=== PATIENT | male | born 1930 | race Caucasian/White ===

== ENCOUNTER 2018-03-24 19:53 | Inpatient (IN) ==
[2018-03-24] MEDS ORDERED: SODIUM CHLORIDE 0.9% 1,000 ML IV STA ×2 (20:15→23:07)
[2018-03-24] MEDS ORDERED: ACETAMINOPHEN 500 MG TABLET PO STA (20:17)
[2018-03-24 20:38] LABS: Basophils % 0.1 % (0.0-0.8); Eosinophils # 0.1 10*3/uL (0.0-0.87); Eosinophils % 0.4 % (0.00-10.9); Hematocrit 31.5 VOL% (42.0-52.0); Hemoglobin 10.3 GM/DL (14.0-18.0); Immature Granulocytes % 0.5 %; Immature Granulocytes Absolute 0.07 #; Lymphocytes # 0.8 10*3/uL (1.4-4.0); Lymphocytes % 5.9 % (21.2-54.2); Mean Corpuscular HGB Conc 32.7 GM/DL (32-36); Mean Corpuscular Hemoglobin 30 PG (27-34); Mean Corpuscular Volume 91.3 FL (87-102); Mean Platelet Volume 10.3 FL (9.6-12.0); Monocytes % 7.1 % (1.7-12.7); Neutrophils # 11.7 10*3/uL (1.4-7.4); Platelet Count 132 T/CUMM (130-400); Red Blood Count 3.45 MC/CUMM (3.8-5.5); Red Cell Distribution Width 13.2 % (9.3-17.3); White Blood Count 13.6 T/CUMM (4-12)
[2018-03-24 20:47] LABS: INR 0.9
[2018-03-24 20:59] LABS: ABG Base Excess 3.7 MMOL/L (-2.5-2.5); ABG HCO3 26.9 MMOL/L (20-26); ABG Oxygen Saturation 49.1 % (95-100); ABG PCO2 45.6 MM HG (35-48); ABG PH 7.411 (7.35-7.45); ABG TCO2 26.5 MMOL/L (23-27); Allen Test Positive
[2018-03-24 21:00] LABS: Albumin 2.8 G/DL (3.4-5.0); Bilirubin,Total 0.5 MG/DL (0.2-1.0); Calcium 8.2 MG/DL (8.5-10.1); Osmolality,Calculated 262.4 MOS/KG (273-304); Total Protein 5.5 G/DL (6.4-8.3)
[2018-03-24 21:02] LABS: ABG PO2 26.3 MM HG (80-95)
[2018-03-24 21:32] LABS: Apearance,Urine CLEAR (Clear); Bilirubin,Urine Negative (Negative); Blood, Urine Large mg/dL (Negative); Glucose,Urine (UA) Negative (Negative); Ketones,Urine Negative (Negative); Mucus,Urine Occasional /LPF (Occasional); Nitrite,Urine Negative (Negative); Protein,Urine Negative; RBC,Urine 51 /HPF (0-4); Squamous Epithelial Cell,Urine Occasional /HPF (0-10); Urine Color Yellow (Yellow); Urine Specific Gravity 1.008 (1.001-1.035); Urine Urobilinogen < 2.0 EU/DL (0.2-1.0); WBC,Urine 1 /HPF (0-6)
[2018-03-24 21:41] LABS: ABG Base Excess 3.1 MMOL/L (-2.5-2.5); ABG HCO3 27.2 MMOL/L (20-26); ABG Oxygen Saturation 96.1 % (95-100); ABG PCO2 40.8 MM HG (35-48); ABG PH 7.437 (7.35-7.45); ABG PO2 74.1 MM HG (80-95)
[2018-03-24] MEDS ORDERED: LEVOFLOXACIN INJ 500 MG in PREMIX 1 EACH IV STA (21:44)
[2018-03-24] MEDS ORDERED: DEXTROSE 50% 25 GM/50 ML VIAL IV STA (21:54)
[2018-03-24] MEDS ORDERED: INSULIN REGULAR 100 UNIT/ML IV STA (21:54)
[2018-03-24] MEDS ORDERED: DEXTROSE 50% 25 GM/50 ML SYRINGE IV ONE (22:24)
[2018-03-24] MEDS ORDERED: BISACODYL 5 MG TABLET PO PRN (23:05)
[2018-03-24] MEDS ORDERED: diphenhydrAMINE CAP 25 MG CAPSULE PO PRN (23:05)
[2018-03-24] MEDS ORDERED: NICOTINE 21 MG/24 HR PATCH TRANSDERM PRN (23:05)
[2018-03-24] MEDS ORDERED: AZITHROMYCIN INJ 500 MG in SODIUM CHLORIDE 0.9% 250 ML IV SCH (23:30)
[2018-03-24] MEDS ORDERED: SODIUM POLYSTYRENE SULFATE 15 GM/60 ML BOTTLE PO SCH (23:30)
[2018-03-25] MEDS ORDERED: VANCOMYCIN INJ 1,500 MG in SODIUM CHLORIDE 0.9% 500 ML IV SCH
[2018-03-25] MEDS: SODIUM CHLORIDE 0.9% 1,000 ML IV SCH (00:54)
[2018-03-25] MEDS: ALBUTEROL/IPRATROPIUM 3 ML NEB RESP TX SCH ×5 (03:14→19:40)
[2018-03-25] MEDS: PIPERACILLIN/TAZOBACTAM 3,375 MG in SODIUM CHLORIDE 0.9% 100 ML IV SCH ×3 (05:16→18:49)
[2018-03-25 05:54] LABS: Basophils % 0.2 % (0.0-0.8); Eosinophils # 0.1 10*3/uL (0.0-0.87); Hematocrit 28.7 VOL% (42.0-52.0); Hemoglobin 9.2 GM/DL (14.0-18.0); Immature Granulocytes % 0.6 %; Immature Granulocytes Absolute 0.05 #; Lymphocytes # 0.8 10*3/uL (1.4-4.0); Lymphocytes % 8.4 % (21.2-54.2); Mean Corpuscular HGB Conc 32.1 GM/DL (32-36); Mean Corpuscular Hemoglobin 30 PG (27-34); Mean Corpuscular Volume 92.3 FL (87-102); Mean Platelet Volume 10.2 FL (9.6-12.0); Monocytes # 0.9 10*3/uL (0.11-0.8); Monocytes % 9.5 % (1.7-12.7); Neutrophils # 7.3 10*3/uL (1.4-7.4); Neutrophils % 80.3 % (38.7-73.9); Platelet Count 106 T/CUMM (130-400); Red Blood Count 3.11 MC/CUMM (3.8-5.5); Red Cell Distribution Width 13.3 % (9.3-17.3); White Blood Count 9.1 T/CUMM (4-12)
[2018-03-25 06:14] LABS: Albumin 2.4 G/DL (3.4-5.0); Bilirubin,Total 0.8 MG/DL (0.2-1.0); Calcium 7.6 MG/DL (8.5-10.1); Osmolality,Calculated 263.2 MOS/KG (273-304); Potassium 5.5 MMOL/L (3.5-5.1)
[2018-03-25] MEDS ORDERED: SODIUM POLYSTYRENE SULFATE 15 GM/60 ML BOTTLE RECTAL ONE (06:29)
[2018-03-25] MEDS: PANTOPRAZOLE 40 MG TABLET PO SCH (09:33)
[2018-03-25] MEDS: LEVOFLOXACIN INJ 500 MG in PREMIX 1 EACH IV SCH ×3 (11:00→18:42)
[2018-03-25] MEDS ORDERED: ALBUTEROL 2.5 MG/3 ML NEB RESP TX PRN (11:55)
[2018-03-25 12:05] LABS: Basophils % 0.2 % (0.0-0.8); Eosinophils # 0.1 10*3/uL (0.0-0.87); Eosinophils % 0.8 % (0.00-10.9); Hemoglobin 8.8 GM/DL (14.0-18.0); Immature Granulocytes % 0.5 %; Immature Granulocytes Absolute 0.04 #; Lymphocytes # 0.7 10*3/uL (1.4-4.0); Lymphocytes % 8.6 % (21.2-54.2); Mean Corpuscular HGB Conc 32.6 GM/DL (32-36); Mean Corpuscular Hemoglobin 30 PG (27-34); Mean Corpuscular Volume 92.8 FL (87-102); Mean Platelet Volume 10.7 FL (9.6-12.0); Monocytes # 0.7 10*3/uL (0.11-0.8); Monocytes % 8.9 % (1.7-12.7); Neutrophils # 6.7 10*3/uL (1.4-7.4); Platelet Count 100 T/CUMM (130-400); Red Blood Count 2.91 MC/CUMM (3.8-5.5); Red Cell Distribution Width 13.3 % (9.3-17.3); White Blood Count 8.3 T/CUMM (4-12)
[2018-03-25] MEDS ORDERED: MAGNESIUM HYDROXIDE SUSP 30 ML UDCUP PO ONE (16:24)
[2018-03-25] MEDS: THEOPHYLLINE ER (24 HR) 300 MG CAPSULE PO SCH (17:05)
[2018-03-25] MEDS: DUTASTERIDE 0.5 MG CAPSULE PO SCH (17:06)
[2018-03-25] MEDS: ESCITALOPRAM 10 MG TABLET PO SCH (17:06)
[2018-03-25] MEDS: ACETAMINOPHEN 325 MG TABLET PO PRN (17:29)
[2018-03-25 18:39] LABS: Calcium 7.3 MG/DL (8.5-10.1); Osmolality,Calculated 266.9 MOS/KG (273-304); Potassium 4.8 MMOL/L (3.5-5.1)
[2018-03-25] MEDS: LUBIPROSTONE 8 MCG CAPSULE PO SCH (21:03)
[2018-03-25] MEDS: TAMSULOSIN 0.4 MG CAPSULE PO SCH (21:03)
[2018-03-26] MEDS: ALBUTEROL/IPRATROPIUM 3 ML NEB RESP TX SCH ×4 (00:23→19:17)
[2018-03-26] MEDS: PIPERACILLIN/TAZOBACTAM 3,375 MG in SODIUM CHLORIDE 0.9% 100 ML IV SCH ×3 (01:59→20:06)
[2018-03-26 05:50] LABS: Basophils % 0.2 % (0.0-0.8); Eosinophils # 0.1 10*3/uL (0.0-0.87); Eosinophils % 1.1 % (0.00-10.9); Hemoglobin 8.8 GM/DL (14.0-18.0); Immature Granulocytes % 0.6 %; Immature Granulocytes Absolute 0.03 #; Lymphocytes # 0.6 10*3/uL (1.4-4.0); Mean Corpuscular HGB Conc 32.6 GM/DL (32-36); Mean Corpuscular Hemoglobin 30 PG (27-34); Mean Corpuscular Volume 91.5 FL (87-102); Mean Platelet Volume 10.7 FL (9.6-12.0); Monocytes # 0.6 10*3/uL (0.11-0.8); Monocytes % 11.8 % (1.7-12.7); Neutrophils # 4.1 10*3/uL (1.4-7.4); Neutrophils % 75.3 % (38.7-73.9); Red Blood Count 2.95 MC/CUMM (3.8-5.5); Red Cell Distribution Width 13.2 % (9.3-17.3)
[2018-03-26 06:00] LABS: White Blood Count 5.4 T/CUMM (4-12)
[2018-03-26 06:01] LABS: Platelet Count 99 T/CUMM (130-400)
[2018-03-26 06:06] LABS: Calcium 7.6 MG/DL (8.5-10.1); Osmolality,Calculated 273.1 MOS/KG (273-304); Potassium 4.3 MMOL/L (3.5-5.1)
[2018-03-26 06:09] LABS: Platelet Estimate Decreased
[2018-03-26 06:10] LABS: Hypochromasia Slight
[2018-03-26 09:03] LABS: Bacteria,Urine Occasional /HPF (Few); Bilirubin,Urine Negative (Negative); Blood, Urine Large mg/dL (Negative); Glucose,Urine (UA) Negative (Negative); Ketones,Urine Negative (Negative); Nitrite,Urine Negative (Negative); Protein,Urine 100 MG/DL; RBC,Urine 4111 /HPF (0-4); Urine Color Red (Yellow); Urine Specific Gravity 1.009 (1.001-1.035); Urine Urobilinogen < 2.0 EU/DL (0.2-1.0)
[2018-03-26 09:04] LABS: Apearance,Urine Slightly Cloudy (Clear)
[2018-03-26] MEDS: TAMSULOSIN 0.4 MG CAPSULE PO SCH ×2 (09:29→20:05)
[2018-03-26] MEDS: DUTASTERIDE 0.5 MG CAPSULE PO SCH (09:29)
[2018-03-26] MEDS: LUBIPROSTONE 8 MCG CAPSULE PO SCH ×2 (09:29→20:05)
[2018-03-26] MEDS: ESCITALOPRAM 10 MG TABLET PO SCH (09:29)
[2018-03-26] MEDS: THEOPHYLLINE ER (24 HR) 300 MG CAPSULE PO SCH (09:30)
[2018-03-26] MEDS: POLYETHYLENE GLYCOL POWDER 17 GM PACK PO SCH (09:30)
[2018-03-26] MEDS: PANTOPRAZOLE 40 MG TABLET PO SCH (09:30)
[2018-03-26] MEDS: SODIUM CHLORIDE 0.9% 1,000 ML IV SCH ×4 (09:36→23:26)
[2018-03-26] MEDS ORDERED: VANCOMYCIN INJ 1,000 MG in SODIUM CHLORIDE 0.9% 250 ML IV ONE (11:00)
[2018-03-26] MEDS: LEVOFLOXACIN INJ 500 MG in PREMIX 1 EACH IV SCH (18:10)
[2018-03-26] MEDS: MORPHINE 4 MG/1 ML VIAL IV PRN (23:27)
[2018-03-26] MEDS: ONDANSETRON 4 MG/2 ML VIAL IV PRN (23:27)
[2018-03-26] MEDS: VANCOMYCIN INJ 1,500 MG in SODIUM CHLORIDE 0.9% 500 ML IV SCH (23:28)
[2018-03-27] MEDS: ALBUTEROL/IPRATROPIUM 3 ML NEB RESP TX SCH ×4 (00:53→19:07)
[2018-03-27] MEDS: PIPERACILLIN/TAZOBACTAM 3,375 MG in SODIUM CHLORIDE 0.9% 100 ML IV SCH ×3 (03:55→20:24)
[2018-03-27] MEDS: MORPHINE 4 MG/1 ML VIAL IV PRN (06:18)
[2018-03-27] MEDS: TAMSULOSIN 0.4 MG CAPSULE PO SCH ×2 (09:13→20:25)
[2018-03-27] MEDS: LUBIPROSTONE 8 MCG CAPSULE PO SCH ×2 (09:13→20:25)
[2018-03-27] MEDS: DUTASTERIDE 0.5 MG CAPSULE PO SCH (09:13)
[2018-03-27] MEDS: ESCITALOPRAM 10 MG TABLET PO SCH (09:13)
[2018-03-27] MEDS: PANTOPRAZOLE 40 MG TABLET PO SCH (09:13)
[2018-03-27] MEDS: THEOPHYLLINE ER (24 HR) 300 MG CAPSULE PO SCH (09:13)
[2018-03-27] MEDS: POLYETHYLENE GLYCOL POWDER 17 GM PACK PO SCH (09:14)
[2018-03-27] MEDS: ACETAMINOPHEN 325 MG TABLET PO PRN ×2 (10:21→13:51)
[2018-03-27] MEDS: VANCOMYCIN INJ 1,500 MG in SODIUM CHLORIDE 0.9% 500 ML IV SCH (13:54)
[2018-03-28] MEDS: ALBUTEROL/IPRATROPIUM 3 ML NEB RESP TX SCH ×4 (00:07→19:10)
[2018-03-28] MEDS: PIPERACILLIN/TAZOBACTAM 3,375 MG in SODIUM CHLORIDE 0.9% 100 ML IV SCH ×3 (05:15→20:16)
[2018-03-28] MEDS: SODIUM CHLORIDE 0.9% 1,000 ML IV SCH ×3 (05:16→09:51)
[2018-03-28] MEDS: MORPHINE 4 MG/1 ML VIAL IV PRN ×3 (05:23→20:17)
[2018-03-28 06:09] LABS: Basophils % 0.4 % (0.0-0.8); Eosinophils # 0.1 10*3/uL (0.0-0.87); Eosinophils % 1.5 % (0.00-10.9); Hematocrit 28.4 VOL% (42.0-52.0); Hemoglobin 9.3 GM/DL (14.0-18.0); Immature Granulocytes % 0.4 %; Immature Granulocytes Absolute 0.02 #; Lymphocytes # 1.1 10*3/uL (1.4-4.0); Lymphocytes % 21.8 % (21.2-54.2); Mean Corpuscular HGB Conc 32.7 GM/DL (32-36); Mean Corpuscular Hemoglobin 30 PG (27-34); Mean Corpuscular Volume 90.4 FL (87-102); Mean Platelet Volume 10.7 FL (9.6-12.0); Monocytes # 0.6 10*3/uL (0.11-0.8); Monocytes % 10.7 % (1.7-12.7); Neutrophils # 3.4 10*3/uL (1.4-7.4); Neutrophils % 65.2 % (38.7-73.9); Red Blood Count 3.14 MC/CUMM (3.8-5.5); White Blood Count 5.2 T/CUMM (4-12)
[2018-03-28 06:11] LABS: Platelet Count 91 T/CUMM (130-400)
[2018-03-28 06:26] LABS: Calcium 8.1 MG/DL (8.5-10.1); Osmolality,Calculated 270.8 MOS/KG (273-304); Potassium 3.7 MMOL/L (3.5-5.1)
[2018-03-28 06:27] LABS: Hypochromasia Slight; Microcytosis 1+; Ovalocytes Slight; Platelet Estimate Decreased
[2018-03-28] MEDS: ESCITALOPRAM 10 MG TABLET PO SCH (09:38)
[2018-03-28] MEDS: TAMSULOSIN 0.4 MG CAPSULE PO SCH ×2 (09:38→20:18)
[2018-03-28] MEDS: THEOPHYLLINE ER (24 HR) 300 MG CAPSULE PO SCH (09:38)
[2018-03-28] MEDS: LUBIPROSTONE 8 MCG CAPSULE PO SCH ×2 (09:38→20:17)
[2018-03-28] MEDS: DUTASTERIDE 0.5 MG CAPSULE PO SCH (09:39)
[2018-03-28] MEDS: PANTOPRAZOLE 40 MG TABLET PO SCH (09:39)
[2018-03-28] MEDS: POLYETHYLENE GLYCOL POWDER 17 GM PACK PO SCH (09:39)
[2018-03-28] MEDS ORDERED: fentaNYL 12 MCG/HR PATCH TRANSDERM SCH (17:30)
[2018-03-28] MEDS: ONDANSETRON 4 MG/2 ML VIAL IV PRN (20:17)
[2018-03-28] MEDS: GABAPENTIN 300 MG CAPSULE PO SCH (20:18)
[2018-03-29] MEDS: ALBUTEROL/IPRATROPIUM 3 ML NEB RESP TX SCH ×2 (00:30→07:10)
[2018-03-29] MEDS: SODIUM CHLORIDE 0.9% 1,000 ML IV SCH (05:06)
[2018-03-29] MEDS: PIPERACILLIN/TAZOBACTAM 3,375 MG in SODIUM CHLORIDE 0.9% 100 ML IV SCH (05:06)
[2018-03-29 07:00] LABS: Basophils % 0.4 % (0.0-0.8); Eosinophils # 0.1 10*3/uL (0.0-0.87); Eosinophils % 2.2 % (0.00-10.9); Hematocrit 28.9 VOL% (42.0-52.0); Hemoglobin 9.4 GM/DL (14.0-18.0); Immature Granulocytes % 0.4 %; Immature Granulocytes Absolute 0.02 #; Lymphocytes # 0.5 10*3/uL (1.4-4.0); Lymphocytes % 9.2 % (21.2-54.2); Mean Corpuscular HGB Conc 32.5 GM/DL (32-36); Mean Corpuscular Hemoglobin 30 PG (27-34); Mean Corpuscular Volume 91.7 FL (87-102); Mean Platelet Volume 10.5 FL (9.6-12.0); Monocytes # 0.5 10*3/uL (0.11-0.8); Monocytes % 8.6 % (1.7-12.7); Neutrophils # 4.3 10*3/uL (1.4-7.4); Neutrophils % 79.2 % (38.7-73.9); Platelet Count 102 T/CUMM (130-400); Red Blood Count 3.15 MC/CUMM (3.8-5.5); Red Cell Distribution Width 12.9 % (9.3-17.3); White Blood Count 5.5 T/CUMM (4-12)
[2018-03-29 08:04] LABS: Calcium 8.1 MG/DL (8.5-10.1); Osmolality,Calculated 272.7 MOS/KG (273-304); Potassium 3.9 MMOL/L (3.5-5.1); Thyroid Stimulating Hormone 0.045 uIU/ml (0.358-3.74)
[2018-03-29] MEDS: TAMSULOSIN 0.4 MG CAPSULE PO SCH (08:44)
[2018-03-29] MEDS: LUBIPROSTONE 8 MCG CAPSULE PO SCH (08:44)
[2018-03-29] MEDS: DUTASTERIDE 0.5 MG CAPSULE PO SCH (08:44)
[2018-03-29] MEDS: ESCITALOPRAM 10 MG TABLET PO SCH (08:44)
[2018-03-29] MEDS: POLYETHYLENE GLYCOL POWDER 17 GM PACK PO SCH (08:44)
[2018-03-29] MEDS: THEOPHYLLINE ER (24 HR) 300 MG CAPSULE PO SCH (08:45)
[2018-03-29] MEDS: PANTOPRAZOLE 40 MG TABLET PO SCH (08:45)
[2018-03-29] MEDS: GABAPENTIN 300 MG CAPSULE PO SCH (08:45)
[2018-03-29] MEDS ORDERED: CHLORTHALIDONE 25 MG TABLET PO SCH (09:00)
[2018-03-29 10:40] VITALS: BP 165/73
== END 2018-03-29 12:15 | DRG 194 ==
LOC: EDBD → EDUNIT# → N.ED 19:53 → N.EDINP 23:05 → N.5E 23:36
PROVIDERS: ADMIT Internal Medicine; ATTEND Internal Medicine

== ENCOUNTER 2018-06-07 12:54 | Inpatient (IN) ==
[2018-06-07 14:07] LABS: Basophils % 0.7 % (0.0-0.8); Eosinophils # 0.4 10*3/uL (0.0-0.87); Hematocrit 30.7 VOL% (42.0-52.0); Hemoglobin 9.6 GM/DL (14.0-18.0); Immature Granulocytes % 0.2 %; Immature Granulocytes Absolute 0.01 #; Lymphocytes # 1.1 10*3/uL (1.4-4.0); Lymphocytes % 18.4 % (21.2-54.2); Mean Corpuscular HGB Conc 31.3 GM/DL (32-36); Mean Corpuscular Hemoglobin 28 PG (27-34); Mean Corpuscular Volume 90.6 FL (87-102); Mean Platelet Volume 9.4 FL (9.6-12.0); Monocytes # 0.6 10*3/uL (0.11-0.8); Monocytes % 10.1 % (1.7-12.7); Neutrophils # 3.8 10*3/uL (1.4-7.4); Neutrophils % 64.6 % (38.7-73.9); Platelet Count 201 T/CUMM (130-400); Red Blood Count 3.39 MC/CUMM (3.8-5.5); White Blood Count 5.8 T/CUMM (4-12)
[2018-06-07 14:29] LABS: Alanine Aminotransferase 17 U/L (16-61); Alkaline Phosphatase 77 U/L (45-117); Aspartate Amino Transferase 12 U/L (0-37); Bilirubin,Total < 0.39 MG/DL (0.2-1.0); Blood Urea Nitrogen 31 MG/DL (7-18); Calcium 9.3 MG/DL (8.5-10.1); Glucose 111 MG/DL (74-106); Osmolality,Calculated 284.5 MOS/KG (273-304); Potassium 5.5 MMOL/L (3.5-5.1); Sodium 139 MMOL/L (136-145); Total Protein 6.4 G/DL (6.4-8.3)
[2018-06-07 14:57] LABS: Apearance,Urine CLOUDY (Clear); Bilirubin,Urine Negative (Negative); Blood, Urine Small mg/dL (Negative); Glucose,Urine (UA) Negative (Negative); Ketones,Urine Negative (Negative); Nitrite,Urine Positive (Negative); Protein,Urine 30 MG/DL; RBC,Urine 15 /HPF (0-4); Urine Color Dark yellow (Yellow); Urine Specific Gravity 1.006 (1.001-1.035); WBC,Urine 948 /HPF (0-6)
[2018-06-07] MEDS ORDERED: GLUCAGON 1 MG VIAL IM PRN (15:28)
[2018-06-07] MEDS ORDERED: DEXTROSE 50% 25 GM/50 ML VIAL IV PRN (15:28)
[2018-06-07] MEDS ORDERED: ACETAMINOPHEN 325 MG TABLET PO PRN (15:28)
[2018-06-07] MEDS ORDERED: ONDANSETRON 4 MG/2 ML VIAL IV PRN (15:28)
[2018-06-07] MEDS ORDERED: cefTRIAXone 1,000 MG in SYRINGE 1 EACH IV STA (15:31)
[2018-06-07] MEDS ORDERED: AMPICILLIN INJ 2,000 MG in SODIUM CHLORIDE 0.9% 100 ML IV STA (15:34)
[2018-06-07] MEDS ORDERED: cefTRIAXone 1,000 MG VIAL ONE (15:40)
[2018-06-07] MEDS ORDERED: SODIUM CHLORIDE 0.9% 0 ML IV ONE (15:40)
[2018-06-07] MEDS ORDERED: SODIUM CHLORIDE 0.9% 100 ML IV ONE (15:44)
[2018-06-07] MEDS: SODIUM CHLORIDE 0.9% 1,000 ML IV SCH (15:50)
[2018-06-07] MEDS ORDERED: LINEZOLID INJ 600 MG in PREMIX 1 EACH IV SCH (16:00)
[2018-06-07] MEDS ORDERED: cefTRIAXone 1,000 MG in SODIUM CHLORIDE 0.9% 100 ML IV SCH (16:00)
[2018-06-07] MEDS: INSULIN LISPRO 100 UNIT/ML SUBCUT SCH ×2 (17:30→23:23)
[2018-06-07] MEDS: ENOXAPARIN 30 MG/0.3 ML SYRINGE SUBCUT SCH (20:46)
[2018-06-07] MEDS: AMPICILLIN INJ 2,000 MG in SODIUM CHLORIDE 0.9% 100 ML IV SCH (23:33)
[2018-06-08] MEDS: AMPICILLIN INJ 2,000 MG in SODIUM CHLORIDE 0.9% 100 ML IV SCH ×6 (02:39→20:50)
[2018-06-08] MEDS: SODIUM CHLORIDE 0.9% 1,000 ML IV SCH (02:43)
[2018-06-08 05:14] LABS: Basophils % 0.5 % (0.0-0.8); Eosinophils # 0.4 10*3/uL (0.0-0.87); Eosinophils % 6.7 % (0.00-10.9); Hematocrit 30.7 VOL% (42.0-52.0); Hemoglobin 9.5 GM/DL (14.0-18.0); Immature Granulocytes % 0.3 %; Immature Granulocytes Absolute 0.02 #; Lymphocytes # 1.2 10*3/uL (1.4-4.0); Lymphocytes % 19.7 % (21.2-54.2); Mean Corpuscular HGB Conc 30.9 GM/DL (32-36); Mean Corpuscular Hemoglobin 28 PG (27-34); Mean Corpuscular Volume 91.1 FL (87-102); Mean Platelet Volume 9.4 FL (9.6-12.0); Monocytes # 0.7 10*3/uL (0.11-0.8); Monocytes % 11.3 % (1.7-12.7); Neutrophils # 3.9 10*3/uL (1.4-7.4); Neutrophils % 61.5 % (38.7-73.9); Platelet Count 186 T/CUMM (130-400); Red Blood Count 3.37 MC/CUMM (3.8-5.5); Red Cell Distribution Width 13.8 % (9.3-17.3); White Blood Count 6.3 T/CUMM (4-12)
[2018-06-08 05:30] LABS: Calcium 8.6 MG/DL (8.5-10.1); Osmolality,Calculated 283.3 MOS/KG (273-304); Potassium 4.6 MMOL/L (3.5-5.1)
[2018-06-08] MEDS: INSULIN LISPRO 100 UNIT/ML SUBCUT SCH ×4 (08:17→22:05)
[2018-06-08] MEDS: PANTOPRAZOLE 40 MG TABLET PO SCH (08:25)
[2018-06-08] MEDS ORDERED: TEMAZEPAM 7.5 MG CAPSULE PO PRN (08:57)
[2018-06-08] MEDS: TAMSULOSIN 0.4 MG CAPSULE PO SCH ×2 (10:14→20:49)
[2018-06-08] MEDS: ENOXAPARIN 30 MG/0.3 ML SYRINGE SUBCUT SCH (20:49)
[2018-06-08] MEDS: DUTASTERIDE 0.5 MG CAPSULE PO SCH (20:49)
[2018-06-09] MEDS: AMPICILLIN INJ 2,000 MG in SODIUM CHLORIDE 0.9% 100 ML IV SCH ×3 (01:24→09:10)
[2018-06-09] MEDS: SODIUM CHLORIDE 0.9% 1,000 ML IV SCH ×2 (03:39→09:10)
[2018-06-09 06:19] LABS: Basophils % 0.6 % (0.0-0.8); Eosinophils # 0.3 10*3/uL (0.0-0.87); Eosinophils % 4.2 % (0.00-10.9); Hematocrit 34.6 VOL% (42.0-52.0); Hemoglobin 11.1 GM/DL (14.0-18.0); Immature Granulocytes % 0.6 %; Immature Granulocytes Absolute 0.04 #; Lymphocytes # 1.2 10*3/uL (1.4-4.0); Lymphocytes % 18.3 % (21.2-54.2); Mean Corpuscular HGB Conc 32.1 GM/DL (32-36); Mean Corpuscular Hemoglobin 28 PG (27-34); Mean Corpuscular Volume 88.5 FL (87-102); Mean Platelet Volume 9.5 FL (9.6-12.0); Monocytes # 0.7 10*3/uL (0.11-0.8); Monocytes % 10.8 % (1.7-12.7); Neutrophils # 4.4 10*3/uL (1.4-7.4); Neutrophils % 65.5 % (38.7-73.9); Platelet Count 179 T/CUMM (130-400); Red Blood Count 3.91 MC/CUMM (3.8-5.5); Red Cell Distribution Width 13.6 % (9.3-17.3); White Blood Count 6.7 T/CUMM (4-12)
[2018-06-09 06:55] LABS: Calcium 8.8 MG/DL (8.5-10.1); Free T4 (Free Thyroxine) 1.6 NG/DL (0.76-1.46); Osmolality,Calculated 281.3 MOS/KG (273-304)
[2018-06-09] MEDS: INSULIN LISPRO 100 UNIT/ML SUBCUT SCH ×4 (08:14→20:31)
[2018-06-09] MEDS: TAMSULOSIN 0.4 MG CAPSULE PO SCH ×3 (09:09→20:49)
[2018-06-09] MEDS: PANTOPRAZOLE 40 MG TABLET PO SCH (09:10)
[2018-06-09] MEDS ORDERED: guaiFENesin/DM ER 600-30 MG TABLET PO PRN (10:03)
[2018-06-09] MEDS ORDERED: ALBUTEROL 2.5 MG/3 ML NEB RESP TX PRN (10:03)
[2018-06-09] MEDS ORDERED: CYANOCOBALAMIN 1000 MCG/1 ML VIAL IM ONE (12:33)
[2018-06-09] MEDS: GABAPENTIN 300 MG CAPSULE PO SCH ×2 (12:57→20:14)
[2018-06-09] MEDS ORDERED: AMPICILLIN 500 MG CAPSULE PO SCH (13:00)
[2018-06-09 13:15] LABS: Apearance,Urine CLEAR (Clear); Bacteria,Urine Occasional /HPF (Few); Bilirubin,Urine Negative (Negative); Blood, Urine Small mg/dL (Negative); Glucose,Urine (UA) Negative (Negative); Ketones,Urine 5 mg/dL (Negative); Mucus,Urine Occasional /LPF (Occasional); Nitrite,Urine Negative (Negative); Protein,Urine 30 MG/DL; RBC,Urine 4 /HPF (0-4); Squamous Epithelial Cell,Urine Occasional /HPF (0-10); Urine Color Yellow (Yellow); Urine Specific Gravity 1.011 (1.001-1.035); Urine Urobilinogen < 2.0 EU/DL (0.2-1.0); WBC,Urine 24 /HPF (0-6)
[2018-06-09] MEDS: ALBUTEROL/IPRATROPIUM 3 ML NEB RESP TX SCH ×2 (14:51→18:49)
[2018-06-09] MEDS: AMOXICILLIN 500 MG CAPSULE PO SCH ×2 (17:35→20:14)
[2018-06-09] MEDS: LUBIPROSTONE 8 MCG CAPSULE PO SCH (20:13)
[2018-06-09] MEDS: MELATONIN 3 MG TABLET PO SCH (20:13)
[2018-06-09] MEDS: MONTELUKAST 10 MG TABLET PO SCH (20:13)
[2018-06-09] MEDS: DUTASTERIDE 0.5 MG CAPSULE PO SCH (20:14)
[2018-06-09] MEDS: CILOSTAZOL 100 MG TABLET PO SCH (20:14)
[2018-06-09] MEDS: ENOXAPARIN 40 MG/0.4 ML SYRINGE SUBCUT SCH (20:16)
[2018-06-10] MEDS: ALBUTEROL/IPRATROPIUM 3 ML NEB RESP TX SCH ×4 (00:37→20:07)
[2018-06-10 05:32] LABS: Calcium 8.1 MG/DL (8.5-10.1); Osmolality,Calculated 278.7 MOS/KG (273-304); Potassium 3.8 MMOL/L (3.5-5.1)
[2018-06-10] MEDS: LEVOTHYROXINE 150 MCG TABLET PO SCH (05:39)
[2018-06-10] MEDS: BISACODYL 5 MG TABLET PO PRN (05:39)
[2018-06-10] MEDS ORDERED: Albuterol Sulfate [Ventolin Hfa] 2 PUFF INH SCH (06:00)
[2018-06-10] MEDS: INSULIN LISPRO 100 UNIT/ML SUBCUT SCH ×4 (08:12→21:11)
[2018-06-10] MEDS: GABAPENTIN 300 MG CAPSULE PO SCH ×3 (08:49→21:35)
[2018-06-10] MEDS: POLYETHYLENE GLYCOL POWDER 17 GM PACK PO SCH (08:49)
[2018-06-10] MEDS: CILOSTAZOL 100 MG TABLET PO SCH ×2 (08:50→21:35)
[2018-06-10] MEDS: ALLOPURINOL 100 MG TABLET PO SCH (08:50)
[2018-06-10] MEDS: ESCITALOPRAM 10 MG TABLET PO SCH (08:50)
[2018-06-10] MEDS: LUBIPROSTONE 8 MCG CAPSULE PO SCH ×2 (08:50→21:35)
[2018-06-10] MEDS: AMOXICILLIN 500 MG CAPSULE PO SCH (08:50)
[2018-06-10] MEDS: TAMSULOSIN 0.4 MG CAPSULE PO SCH ×3 (08:50→21:40)
[2018-06-10] MEDS: LACTOBACILLUS RHAMNOSUS GG CAPSULE PO SCH (08:51)
[2018-06-10] MEDS: PANTOPRAZOLE 40 MG TABLET PO SCH (08:51)
[2018-06-10] MEDS ORDERED: DUTASTERIDE 0.5 MG CAPSULE PO SCH (09:00)
[2018-06-10] MEDS ORDERED: NON-FORMULARY MEDICATION (Amino Acids/Protein Hydrolys [Pro-Stat Awc Liquid] 30 ML) PO SCH (09:00)
[2018-06-10] MEDS: LEVOFLOXACIN 500 MG TABLET PO SCH (15:29)
[2018-06-10] MEDS: AMPICILLIN INJ 1,000 MG in SODIUM CHLORIDE 0.9% 100 ML IV SCH (16:44)
[2018-06-10] MEDS: MELATONIN 3 MG TABLET PO SCH (21:35)
[2018-06-10] MEDS: DUTASTERIDE 0.5 MG CAPSULE PO SCH (21:35)
[2018-06-10] MEDS: MONTELUKAST 10 MG TABLET PO SCH (21:35)
[2018-06-10] MEDS: OXYBUTYNIN 5 MG TABLET PO SCH (21:35)
[2018-06-10] MEDS: ENOXAPARIN 40 MG/0.4 ML SYRINGE SUBCUT SCH (21:36)
[2018-06-11] MEDS: AMPICILLIN INJ 1,000 MG in SODIUM CHLORIDE 0.9% 100 ML IV SCH ×5 (00:16→21:50)
[2018-06-11] MEDS: ALBUTEROL/IPRATROPIUM 3 ML NEB RESP TX SCH ×4 (00:46→19:38)
[2018-06-11] MEDS: LEVOTHYROXINE 150 MCG TABLET PO SCH (07:14)
[2018-06-11] MEDS: INSULIN LISPRO 100 UNIT/ML SUBCUT SCH ×4 (08:22→21:35)
[2018-06-11] MEDS: LEVOFLOXACIN 500 MG TABLET PO SCH (09:16)
[2018-06-11] MEDS: ESCITALOPRAM 10 MG TABLET PO SCH (09:16)
[2018-06-11] MEDS: ALLOPURINOL 100 MG TABLET PO SCH (09:16)
[2018-06-11] MEDS: BISACODYL 5 MG TABLET PO PRN (09:16)
[2018-06-11] MEDS: TAMSULOSIN 0.4 MG CAPSULE PO SCH ×2 (09:16→21:35)
[2018-06-11] MEDS: PANTOPRAZOLE 40 MG TABLET PO SCH (09:16)
[2018-06-11] MEDS: LUBIPROSTONE 8 MCG CAPSULE PO SCH ×2 (09:16→21:34)
[2018-06-11] MEDS: POLYETHYLENE GLYCOL POWDER 17 GM PACK PO SCH (09:16)
[2018-06-11] MEDS: GABAPENTIN 300 MG CAPSULE PO SCH ×3 (09:16→21:34)
[2018-06-11] MEDS: OXYBUTYNIN 5 MG TABLET PO SCH ×2 (09:17→21:34)
[2018-06-11] MEDS: CILOSTAZOL 100 MG TABLET PO SCH ×2 (09:17→21:34)
[2018-06-11] MEDS: LACTOBACILLUS RHAMNOSUS GG CAPSULE PO SCH (09:17)
[2018-06-11] MEDS ORDERED: MAGNESIUM CITRATE 300 ML BOTTLE PO ONE (09:37)
[2018-06-11] MEDS: MELATONIN 3 MG TABLET PO SCH (21:35)
[2018-06-11] MEDS: MONTELUKAST 10 MG TABLET PO SCH (21:35)
[2018-06-11] MEDS: DUTASTERIDE 0.5 MG CAPSULE PO SCH (21:35)
[2018-06-11] MEDS: ENOXAPARIN 40 MG/0.4 ML SYRINGE SUBCUT SCH (21:38)
[2018-06-12] MEDS: ALBUTEROL/IPRATROPIUM 3 ML NEB RESP TX SCH ×4 (00:33→19:18)
[2018-06-12] MEDS ORDERED: KETOROLAC 30 MG/1 ML VIAL IM ONE (03:27)
[2018-06-12] MEDS: AMPICILLIN INJ 1,000 MG in SODIUM CHLORIDE 0.9% 100 ML IV SCH ×2 (04:10→09:51)
[2018-06-12] MEDS: LEVOTHYROXINE 150 MCG TABLET PO SCH (07:15)
[2018-06-12] MEDS: INSULIN LISPRO 100 UNIT/ML SUBCUT SCH ×4 (08:27→20:45)
[2018-06-12] MEDS: GABAPENTIN 300 MG CAPSULE PO SCH ×3 (09:52→20:44)
[2018-06-12] MEDS: LUBIPROSTONE 8 MCG CAPSULE PO SCH ×2 (09:52→20:44)
[2018-06-12] MEDS: ESCITALOPRAM 10 MG TABLET PO SCH (09:52)
[2018-06-12] MEDS: LACTOBACILLUS RHAMNOSUS GG CAPSULE PO SCH (09:52)
[2018-06-12] MEDS: TAMSULOSIN 0.4 MG CAPSULE PO SCH ×2 (09:52→20:44)
[2018-06-12] MEDS: LEVOFLOXACIN 500 MG TABLET PO SCH (09:52)
[2018-06-12] MEDS: CILOSTAZOL 100 MG TABLET PO SCH ×2 (09:52→20:44)
[2018-06-12] MEDS: BISACODYL 5 MG TABLET PO PRN (09:53)
[2018-06-12] MEDS: PANTOPRAZOLE 40 MG TABLET PO SCH (09:53)
[2018-06-12] MEDS: ALLOPURINOL 100 MG TABLET PO SCH (09:53)
[2018-06-12] MEDS: POLYETHYLENE GLYCOL POWDER 17 GM PACK PO SCH (09:53)
[2018-06-12] MEDS: fentaNYL 12 MCG/HR PATCH TRANSDERM SCH ×2 (09:53→19:09)
[2018-06-12] MEDS: OXYBUTYNIN 5 MG TABLET PO SCH (10:01)
[2018-06-12] MEDS ORDERED: LEVOTHYROXINE 150 MCG TABLET PO SCH (12:57)
[2018-06-12] MEDS ORDERED: COLCHICINE 0.6 MG CAPSULE PO ONE (12:58)
[2018-06-12] MEDS: MELATONIN 3 MG TABLET PO SCH (20:44)
[2018-06-12] MEDS: DUTASTERIDE 0.5 MG CAPSULE PO SCH (20:44)
[2018-06-12] MEDS: MONTELUKAST 10 MG TABLET PO SCH (20:44)
[2018-06-13] MEDS: ALBUTEROL/IPRATROPIUM 3 ML NEB RESP TX SCH ×2 (00:43→07:30)
[2018-06-13 05:29] LABS: Calcium 7.9 MG/DL (8.5-10.1); Osmolality,Calculated 272.1 MOS/KG (273-304); Potassium 3.9 MMOL/L (3.5-5.1)
[2018-06-13 06:30] LABS: Basophils % 0.6 % (0.0-0.8); Eosinophils # 0.4 10*3/uL (0.0-0.87); Eosinophils % 6.8 % (0.00-10.9); Hematocrit 29.7 VOL% (42.0-52.0); Hemoglobin 9.7 GM/DL (14.0-18.0); Immature Granulocytes % 0.6 %; Immature Granulocytes Absolute 0.03 #; Lymphocytes # 1.1 10*3/uL (1.4-4.0); Lymphocytes % 20.6 % (21.2-54.2); Mean Corpuscular HGB Conc 32.7 GM/DL (32-36); Mean Corpuscular Hemoglobin 29 PG (27-34); Mean Corpuscular Volume 88.4 FL (87-102); Mean Platelet Volume 10.1 FL (9.6-12.0); Monocytes # 0.5 10*3/uL (0.11-0.8); Monocytes % 8.3 % (1.7-12.7); Neutrophils # 3.4 10*3/uL (1.4-7.4); Neutrophils % 63.1 % (38.7-73.9); Platelet Count 136 T/CUMM (130-400); Red Blood Count 3.36 MC/CUMM (3.8-5.5); Red Cell Distribution Width 13.9 % (9.3-17.3); White Blood Count 5.4 T/CUMM (4-12)
[2018-06-13] MEDS ORDERED: LIDOCAINE 2% TOP JELLY 20 ML VIAL INTRAURETH ONE (07:11)
[2018-06-13] MEDS: INSULIN LISPRO 100 UNIT/ML SUBCUT SCH ×2 (07:30→11:51)
[2018-06-13] MEDS: BISACODYL 5 MG TABLET PO PRN (08:41)
[2018-06-13] MEDS: POLYETHYLENE GLYCOL POWDER 17 GM PACK PO SCH (08:41)
[2018-06-13] MEDS: LUBIPROSTONE 8 MCG CAPSULE PO SCH (08:41)
[2018-06-13] MEDS: GABAPENTIN 300 MG CAPSULE PO SCH (08:41)
[2018-06-13] MEDS: PANTOPRAZOLE 40 MG TABLET PO SCH (08:41)
[2018-06-13] MEDS: CILOSTAZOL 100 MG TABLET PO SCH (08:42)
[2018-06-13] MEDS: ESCITALOPRAM 10 MG TABLET PO SCH (08:42)
[2018-06-13] MEDS: TAMSULOSIN 0.4 MG CAPSULE PO SCH (08:42)
[2018-06-13] MEDS: ALLOPURINOL 100 MG TABLET PO SCH (08:43)
[2018-06-13] MEDS: LEVOFLOXACIN 500 MG TABLET PO SCH (08:43)
[2018-06-13] MEDS: LACTOBACILLUS RHAMNOSUS GG CAPSULE PO SCH (09:00)
[2018-06-13] MEDS ORDERED: SODIUM PHOSPHATE ENEMA 133 ML BOTTLE RECTAL STA (10:33)
[2018-06-13 11:54] VITALS: BP 144/63
== END 2018-06-13 12:20 | DRG 690 ==
LOC: EDBD → EDUNIT# → N.ED 12:54 → N.EDINP 12:54 → SUATTDRO 15:28 → N.EDINP 16:30 → N.5E 16:42 → SUATTDRO 06-09 12:40
PROVIDERS: ADMIT Internal Medicine; ATTEND Internal Medicine

== ENCOUNTER 2018-09-10 15:30 | Inpatient (IN) ==
[2018-09-10 16:12] LABS: Basophils % 0.3 % (0.0-0.8); Eosinophils % 0.5 % (0.00-10.9); Hematocrit 31.1 VOL% (42.0-52.0); Hemoglobin 9.7 GM/DL (14.0-18.0); Immature Granulocytes % 0.3 %; Immature Granulocytes Absolute 0.02 #; Lymphocytes # 0.6 10*3/uL (1.4-4.0); Lymphocytes % 8.8 % (21.2-54.2); Mean Corpuscular HGB Conc 31.2 GM/DL (32-36); Mean Corpuscular Volume 80.6 FL (87-102); Mean Platelet Volume 9.7 FL (9.6-12.0); Monocytes % 10.4 % (1.7-12.7); Neutrophils % 79.7 % (38.7-73.9); Platelet Count 205 T/CUMM (130-400); Red Blood Count 3.86 MC/CUMM (3.8-5.5); Red Cell Distribution Width 13.7 % (9.3-17.3); White Blood Count 6.2 T/CUMM (4-12)
[2018-09-10 16:24] LABS: PT Patient Result 10.7 SECS; Partial Thromboplastin Time 29.6 SECS (0-40)
[2018-09-10 16:26] LABS: Alanine Aminotransferase 9 U/L (16-61); Albumin 2.7 G/DL (3.4-5.0); Alkaline Phosphatase 83 U/L (45-117); Aspartate Amino Transferase 13 U/L (0-37); Blood Urea Nitrogen 14 MG/DL (7-18); Calcium 8.7 MG/DL (8.5-10.1); Glucose 154 MG/DL (74-106); Osmolality,Calculated 273.1 MOS/KG (273-304); Total Protein 5.8 G/DL (6.4-8.3)
[2018-09-10 16:27] LABS: Troponin I 0.027 NG/ML (0.00-0.045)
[2018-09-10] MEDS ORDERED: ALBUTEROL/IPRATROPIUM 3 ML NEB RESP TX STA (17:29)
[2018-09-10] MEDS ORDERED: SODIUM CHLORIDE 0.9% 1,000 ML IV STA (17:29)
[2018-09-10] MEDS ORDERED: cefTRIAXone 1,000 MG VIAL IV STA (17:29)
[2018-09-10 19:00] LABS: Apearance,Urine CLEAR (Clear); Bacteria,Urine Occasional /HPF (Few); Bilirubin,Urine Negative (Negative); Blood, Urine Negative (Negative); Glucose,Urine (UA) Negative (Negative); Ketones,Urine Negative (Negative); Mucus,Urine Occasional /LPF (Occasional); Nitrite,Urine Negative (Negative); Protein,Urine Negative; RBC,Urine 3 /HPF (0-4); Squamous Epithelial Cell,Urine Occasional /HPF (0-10); Urine Color Yellow (Yellow); Urine Specific Gravity 1.008 (1.001-1.035); Urine Urobilinogen < 2.0 EU/DL (0.2-1.0); WBC,Urine <1 /HPF (0-6)
[2018-09-10] MEDS ORDERED: ONDANSETRON 4 MG/2 ML VIAL IV PRN (19:04)
[2018-09-10] MEDS: AZITHROMYCIN INJ 500 MG in SODIUM CHLORIDE 0.9% 250 ML IV SCH (20:33)
[2018-09-10] MEDS: ENOXAPARIN 40 MG/0.4 ML SYRINGE SUBCUT SCH (21:28)
[2018-09-10] MEDS: GABAPENTIN 300 MG CAPSULE PO SCH (21:28)
[2018-09-10] MEDS: DOCUSATE SODIUM 100 MG CAPSULE PO SCH (21:29)
[2018-09-10] MEDS: THEOPHYLLINE ER (24 HR) 300 MG CAPSULE PO SCH (21:29)
[2018-09-10] MEDS: LUBIPROSTONE 8 MCG CAPSULE PO SCH (21:29)
[2018-09-10] MEDS: DUTASTERIDE 0.5 MG CAPSULE PO SCH (21:29)
[2018-09-10] MEDS: MONTELUKAST 10 MG TABLET PO SCH (21:30)
[2018-09-10] MEDS: POTASSIUM CHLORIDE 20 MEQ TABLET PO PRN (21:30)
[2018-09-10] MEDS: BENZONATATE 100 MG CAPSULE PO SCH (21:30)
[2018-09-10] MEDS: SODIUM CHLORIDE 0.9% 1,000 ML IV SCH (21:58)
[2018-09-11 05:58] LABS: Basophils % 0.2 % (0.0-0.8); Eosinophils # 0.1 10*3/uL (0.0-0.87); Eosinophils % 2.2 % (0.00-10.9); Hematocrit 28.7 VOL% (42.0-52.0); Hemoglobin 8.9 GM/DL (14.0-18.0); Immature Granulocytes % 0.4 %; Immature Granulocytes Absolute 0.02 #; Lymphocytes # 0.7 10*3/uL (1.4-4.0); Lymphocytes % 13.3 % (21.2-54.2); Mean Corpuscular Volume 80.6 FL (87-102); Mean Platelet Volume 9.5 FL (9.6-12.0); Monocytes % 10.1 % (1.7-12.7); Neutrophils % 73.8 % (38.7-73.9); Platelet Count 177 T/CUMM (130-400); Red Blood Count 3.56 MC/CUMM (3.8-5.5); Red Cell Distribution Width 13.7 % (9.3-17.3); White Blood Count 5.4 T/CUMM (4-12)
[2018-09-11] MEDS: LEVOTHYROXINE 75 MCG TABLET PO SCH (05:58)
[2018-09-11 06:29] LABS: Calcium 8.5 MG/DL (8.5-10.1); Osmolality,Calculated 270.1 MOS/KG (273-304); Risk Ratio 2.48; Thyroid Stimulating Hormone 0.336 uIU/ml (0.358-3.74); VLDL CHOLESTEROL 17.2 MG/DL
[2018-09-11] MEDS: TAMSULOSIN 0.4 MG CAPSULE PO SCH ×2 (08:39→17:39)
[2018-09-11] MEDS: THEOPHYLLINE ER (24 HR) 300 MG CAPSULE PO SCH ×2 (08:39→20:54)
[2018-09-11] MEDS: ALLOPURINOL 100 MG TABLET PO SCH (08:39)
[2018-09-11] MEDS: PANTOPRAZOLE 40 MG TABLET PO SCH (08:40)
[2018-09-11] MEDS: ESCITALOPRAM 10 MG TABLET PO SCH (08:40)
[2018-09-11] MEDS: LUBIPROSTONE 8 MCG CAPSULE PO SCH ×2 (08:40→20:54)
[2018-09-11] MEDS: BENZONATATE 100 MG CAPSULE PO SCH ×3 (08:40→20:54)
[2018-09-11] MEDS: CHLORTHALIDONE 25 MG TABLET PO SCH (08:40)
[2018-09-11] MEDS: DOCUSATE SODIUM 100 MG CAPSULE PO SCH ×2 (08:40→20:54)
[2018-09-11] MEDS: POLYETHYLENE GLYCOL POWDER 17 GM PACK PO SCH (08:40)
[2018-09-11] MEDS: GABAPENTIN 300 MG CAPSULE PO SCH ×3 (08:40→20:54)
[2018-09-11] MEDS: SODIUM CHLORIDE 0.9% 1,000 ML IV SCH (08:41)
[2018-09-11] MEDS: POTASSIUM CHLORIDE 20 MEQ TABLET PO PRN ×2 (12:30→17:39)
[2018-09-11] MEDS: fentaNYL 12 MCG/HR PATCH TRANSDERM SCH (12:31)
[2018-09-11] MEDS: cefTRIAXone 1,000 MG in SYRINGE 1 EACH IV SCH (14:49)
[2018-09-11] MEDS: AZITHROMYCIN INJ 500 MG in SODIUM CHLORIDE 0.9% 250 ML IV SCH (20:53)
[2018-09-11] MEDS: ENOXAPARIN 40 MG/0.4 ML SYRINGE SUBCUT SCH (20:54)
[2018-09-11] MEDS: MONTELUKAST 10 MG TABLET PO SCH (20:54)
[2018-09-11] MEDS: DUTASTERIDE 0.5 MG CAPSULE PO SCH (20:54)
[2018-09-11] MEDS: clonazePAM 0.5 MG TABLET PO PRN (21:06)
[2018-09-12] MEDS: ALBUTEROL/IPRATROPIUM 3 ML NEB RESP TX PRN ×2 (03:51→10:10)
[2018-09-12] MEDS ORDERED: METOPROLOL TARTRATE 5 MG/5 ML VIAL IV ONE (05:19)
[2018-09-12] MEDS: LEVOTHYROXINE 75 MCG TABLET PO SCH (06:11)
[2018-09-12 07:12] LABS: Basophils % 0.4 % (0.0-0.8); Eosinophils # 0.2 10*3/uL (0.0-0.87); Eosinophils % 3.1 % (0.00-10.9); Hematocrit 30.2 VOL% (42.0-52.0); Hemoglobin 9.5 GM/DL (14.0-18.0); Immature Granulocytes % 0.3 %; Immature Granulocytes Absolute 0.02 #; Lymphocytes # 0.9 10*3/uL (1.4-4.0); Lymphocytes % 13.5 % (21.2-54.2); Mean Corpuscular HGB Conc 31.5 GM/DL (32-36); Mean Platelet Volume 10.2 FL (9.6-12.0); Neutrophils % 72.7 % (38.7-73.9); Platelet Count 216 T/CUMM (130-400); Red Blood Count 3.73 MC/CUMM (3.8-5.5); White Blood Count 6.7 T/CUMM (4-12)
[2018-09-12 07:13] LABS: Calcium 8.3 MG/DL (8.5-10.1); Osmolality,Calculated 271.8 MOS/KG (273-304)
[2018-09-12] MEDS: POLYETHYLENE GLYCOL POWDER 17 GM PACK PO SCH (09:31)
[2018-09-12] MEDS: GABAPENTIN 300 MG CAPSULE PO SCH ×3 (09:32→21:27)
[2018-09-12] MEDS: ESCITALOPRAM 10 MG TABLET PO SCH (09:32)
[2018-09-12] MEDS: BENZONATATE 100 MG CAPSULE PO SCH ×3 (09:32→21:27)
[2018-09-12] MEDS: THEOPHYLLINE ER (24 HR) 300 MG CAPSULE PO SCH ×2 (09:32→21:27)
[2018-09-12] MEDS: LUBIPROSTONE 8 MCG CAPSULE PO SCH ×2 (09:32→21:27)
[2018-09-12] MEDS: cefTRIAXone 1,000 MG in SYRINGE 1 EACH IV SCH (09:32)
[2018-09-12] MEDS: TAMSULOSIN 0.4 MG CAPSULE PO SCH ×2 (09:32→17:31)
[2018-09-12] MEDS: ALLOPURINOL 100 MG TABLET PO SCH (09:33)
[2018-09-12] MEDS: AZITHROMYCIN 250 MG TABLET PO SCH (09:33)
[2018-09-12] MEDS: PANTOPRAZOLE 40 MG TABLET PO SCH (09:33)
[2018-09-12] MEDS: POTASSIUM CHLORIDE 20 MEQ TABLET PO PRN (09:33)
[2018-09-12] MEDS: DOCUSATE SODIUM 100 MG CAPSULE PO SCH ×2 (09:33→21:27)
[2018-09-12] MEDS: CHLORTHALIDONE 25 MG TABLET PO SCH (09:33)
[2018-09-12] MEDS: POTASSIUM CHLORIDE RIDER 10 MEQ in PREMIX 1 EACH IV PRN ×4 (10:49→16:18)
[2018-09-12] MEDS: clonazePAM 0.5 MG TABLET PO PRN ×2 (14:26→21:27)
[2018-09-12] MEDS ORDERED: METOPROLOL SUCCINATE XL 25 MG TABLET PO SCH (16:00)
[2018-09-12] MEDS: DUTASTERIDE 0.5 MG CAPSULE PO SCH (21:27)
[2018-09-12] MEDS: MONTELUKAST 10 MG TABLET PO SCH (21:27)
[2018-09-12] MEDS: ENOXAPARIN 40 MG/0.4 ML SYRINGE SUBCUT SCH (21:27)
[2018-09-13 05:27] LABS: Basophils % 0.4 % (0.0-0.8); Eosinophils # 0.2 10*3/uL (0.0-0.87); Hematocrit 32.5 VOL% (42.0-52.0); Hemoglobin 9.9 GM/DL (14.0-18.0); Immature Granulocytes % 0.6 %; Immature Granulocytes Absolute 0.04 #; Lymphocytes # 0.8 10*3/uL (1.4-4.0); Lymphocytes % 10.7 % (21.2-54.2); Mean Corpuscular HGB Conc 30.5 GM/DL (32-36); Mean Corpuscular Volume 81.9 FL (87-102); Mean Platelet Volume 9.6 FL (9.6-12.0); Monocytes % 9.5 % (1.7-12.7); Neutrophils % 75.8 % (38.7-73.9); Platelet Count 234 T/CUMM (130-400); Red Blood Count 3.97 MC/CUMM (3.8-5.5); Red Cell Distribution Width 14.2 % (9.3-17.3)
[2018-09-13 05:34] LABS: Calcium 8.6 MG/DL (8.5-10.1); Osmolality,Calculated 276.4 MOS/KG (273-304)
[2018-09-13] MEDS: LEVOTHYROXINE 50 MCG TABLET PO SCH (06:16)
[2018-09-13] MEDS: POTASSIUM CHLORIDE RIDER 10 MEQ in PREMIX 1 EACH IV PRN ×4 (07:36→11:05)
[2018-09-13] MEDS: ALBUTEROL/IPRATROPIUM 3 ML NEB RESP TX PRN (08:50)
[2018-09-13] MEDS: clonazePAM 0.5 MG TABLET PO PRN (08:51)
[2018-09-13] MEDS: LUBIPROSTONE 8 MCG CAPSULE PO SCH ×2 (09:31→20:17)
[2018-09-13] MEDS: NEBIVOLOL 5 MG TABLET PO SCH ×2 (09:31→20:17)
[2018-09-13] MEDS: CHLORTHALIDONE 25 MG TABLET PO SCH (09:31)
[2018-09-13] MEDS: POLYETHYLENE GLYCOL POWDER 17 GM PACK PO SCH (09:31)
[2018-09-13] MEDS: ESCITALOPRAM 10 MG TABLET PO SCH (09:31)
[2018-09-13] MEDS: THEOPHYLLINE ER (24 HR) 300 MG CAPSULE PO SCH (09:31)
[2018-09-13] MEDS: BENZONATATE 100 MG CAPSULE PO SCH ×3 (09:32→20:17)
[2018-09-13] MEDS: ALLOPURINOL 100 MG TABLET PO SCH (09:32)
[2018-09-13] MEDS: PANTOPRAZOLE 40 MG TABLET PO SCH (09:32)
[2018-09-13] MEDS: TAMSULOSIN 0.4 MG CAPSULE PO SCH ×2 (09:32→17:37)
[2018-09-13] MEDS: AZITHROMYCIN 250 MG TABLET PO SCH (09:32)
[2018-09-13] MEDS: DOCUSATE SODIUM 100 MG CAPSULE PO SCH ×2 (09:32→20:17)
[2018-09-13] MEDS: GABAPENTIN 300 MG CAPSULE PO SCH ×3 (09:32→20:17)
[2018-09-13] MEDS: cefTRIAXone 1,000 MG in SYRINGE 1 EACH IV SCH (09:33)
[2018-09-13] MEDS: ALBUTEROL/IPRATROPIUM 3 ML NEB RESP TX SCH (19:35)
[2018-09-13] MEDS: MONTELUKAST 10 MG TABLET PO SCH (20:17)
[2018-09-13] MEDS: DUTASTERIDE 0.5 MG CAPSULE PO SCH (20:17)
[2018-09-13] MEDS: ENOXAPARIN 40 MG/0.4 ML SYRINGE SUBCUT SCH (20:18)
[2018-09-14] MEDS: ALBUTEROL/IPRATROPIUM 3 ML NEB RESP TX SCH ×4 (01:36→19:21)
[2018-09-14 04:53] LABS: Basophils % 0.6 % (0.0-0.8); Eosinophils # 0.5 10*3/uL (0.0-0.87); Eosinophils % 7.8 % (0.00-10.9); Hematocrit 30.7 VOL% (42.0-52.0); Hemoglobin 9.2 GM/DL (14.0-18.0); Immature Granulocytes % 0.6 %; Immature Granulocytes Absolute 0.04 #; Lymphocytes # 1.2 10*3/uL (1.4-4.0); Mean Corpuscular Volume 83.4 FL (87-102); Mean Platelet Volume 9.6 FL (9.6-12.0); Monocytes % 12.2 % (1.7-12.7); Neutrophils % 59.8 % (38.7-73.9); Platelet Count 216 T/CUMM (130-400); Red Blood Count 3.68 MC/CUMM (3.8-5.5); Red Cell Distribution Width 14.3 % (9.3-17.3); White Blood Count 6.4 T/CUMM (4-12)
[2018-09-14 05:14] LABS: Calcium 8.5 MG/DL (8.5-10.1); Osmolality,Calculated 278.3 MOS/KG (273-304)
[2018-09-14] MEDS: LEVOTHYROXINE 50 MCG TABLET PO SCH (06:17)
[2018-09-14] MEDS: POLYETHYLENE GLYCOL POWDER 17 GM PACK PO SCH (09:02)
[2018-09-14] MEDS: cefTRIAXone 1,000 MG in SYRINGE 1 EACH IV SCH (09:02)
[2018-09-14] MEDS: ALLOPURINOL 100 MG TABLET PO SCH (09:03)
[2018-09-14] MEDS: GABAPENTIN 300 MG CAPSULE PO SCH ×3 (09:03→21:02)
[2018-09-14] MEDS: CHLORTHALIDONE 25 MG TABLET PO SCH (09:03)
[2018-09-14] MEDS: BENZONATATE 100 MG CAPSULE PO SCH ×3 (09:03→21:02)
[2018-09-14] MEDS: LUBIPROSTONE 8 MCG CAPSULE PO SCH ×2 (09:03→21:02)
[2018-09-14] MEDS: DOCUSATE SODIUM 100 MG CAPSULE PO SCH ×2 (09:04→21:02)
[2018-09-14] MEDS: TAMSULOSIN 0.4 MG CAPSULE PO SCH ×2 (09:04→17:25)
[2018-09-14] MEDS: PANTOPRAZOLE 40 MG TABLET PO SCH (09:04)
[2018-09-14] MEDS: NEBIVOLOL 5 MG TABLET PO SCH (09:04)
[2018-09-14] MEDS: AZITHROMYCIN 250 MG TABLET PO SCH (09:04)
[2018-09-14] MEDS: ESCITALOPRAM 10 MG TABLET PO SCH (09:04)
[2018-09-14] MEDS: fentaNYL 12 MCG/HR PATCH TRANSDERM SCH (09:08)
[2018-09-14] MEDS ORDERED: FUROSEMIDE 40 MG/4 ML VIAL IV ONE ×2 (10:09→16:00)
[2018-09-14] MEDS ORDERED: BISACODYL 10 MG SUPP RECTAL PRN (13:16)
[2018-09-14] MEDS: MONTELUKAST 10 MG TABLET PO SCH (21:02)
[2018-09-14] MEDS: DUTASTERIDE 0.5 MG CAPSULE PO SCH (21:02)
[2018-09-14] MEDS: ENOXAPARIN 40 MG/0.4 ML SYRINGE SUBCUT SCH (21:06)
[2018-09-14] MEDS: NEBIVOLOL 10 MG TABLET PO SCH (21:06)
[2018-09-15] MEDS: ALBUTEROL/IPRATROPIUM 3 ML NEB RESP TX SCH ×4 (00:18→19:15)
[2018-09-15] MEDS: LEVOTHYROXINE 50 MCG TABLET PO SCH (05:49)
[2018-09-15 06:55] LABS: Calcium 8.7 MG/DL (8.5-10.1); Osmolality,Calculated 282.1 MOS/KG (273-304)
[2018-09-15] MEDS: POTASSIUM CHLORIDE RIDER 10 MEQ in PREMIX 1 EACH IV PRN ×3 (10:21→15:05)
[2018-09-15] MEDS: LUBIPROSTONE 8 MCG CAPSULE PO SCH ×2 (10:22→22:02)
[2018-09-15] MEDS: POLYETHYLENE GLYCOL POWDER 17 GM PACK PO SCH (10:22)
[2018-09-15] MEDS: NEBIVOLOL 10 MG TABLET PO SCH ×2 (10:22→22:02)
[2018-09-15] MEDS: ESCITALOPRAM 10 MG TABLET PO SCH (10:22)
[2018-09-15] MEDS: BENZONATATE 100 MG CAPSULE PO SCH ×3 (10:22→22:07)
[2018-09-15] MEDS: DOCUSATE SODIUM 100 MG CAPSULE PO SCH ×2 (10:22→22:03)
[2018-09-15] MEDS: AZITHROMYCIN 250 MG TABLET PO SCH (10:22)
[2018-09-15] MEDS: PANTOPRAZOLE 40 MG TABLET PO SCH (10:23)
[2018-09-15] MEDS: TAMSULOSIN 0.4 MG CAPSULE PO SCH ×2 (10:23→17:10)
[2018-09-15] MEDS: GABAPENTIN 300 MG CAPSULE PO SCH ×3 (10:23→22:03)
[2018-09-15] MEDS: ALLOPURINOL 100 MG TABLET PO SCH (10:23)
[2018-09-15] MEDS: CHLORTHALIDONE 25 MG TABLET PO SCH (10:23)
[2018-09-15] MEDS: cefTRIAXone 1,000 MG in SYRINGE 1 EACH IV SCH (10:24)
[2018-09-15] MEDS ORDERED: MAGNESIUM HYDROXIDE SUSP 30 ML UDCUP PO ONE (13:00)
[2018-09-15] MEDS ORDERED: POTASSIUM CHLORIDE RIDER 10 MEQ in PREMIX 1 EACH IV PRN (13:11)
[2018-09-15] MEDS ORDERED: FUROSEMIDE 40 MG/4 ML VIAL IV ONE (16:29)
[2018-09-15] MEDS: MONTELUKAST 10 MG TABLET PO SCH (22:02)
[2018-09-15] MEDS: DUTASTERIDE 0.5 MG CAPSULE PO SCH (22:02)
[2018-09-15] MEDS: APIXABAN 2.5 MG TABLET PO SCH (22:02)
[2018-09-16] MEDS: ALBUTEROL/IPRATROPIUM 3 ML NEB RESP TX SCH ×4 (00:40→19:15)
[2018-09-16] MEDS: POTASSIUM CHLORIDE RIDER 10 MEQ in PREMIX 1 EACH IV PRN ×5 (02:16→12:03)
[2018-09-16] MEDS: LEVOTHYROXINE 50 MCG TABLET PO SCH (05:36)
[2018-09-16 07:44] LABS: Basophils # 0.1 10*3/uL (0.0-0.2); Basophils % 0.8 % (0.0-0.8); Eosinophils # 0.6 10*3/uL (0.0-0.87); Eosinophils % 7.6 % (0.00-10.9); Hematocrit 36.4 VOL% (42.0-52.0); Immature Granulocytes % 0.3 %; Immature Granulocytes Absolute 0.02 #; Lymphocytes # 1.5 10*3/uL (1.4-4.0); Lymphocytes % 19.8 % (21.2-54.2); Mean Corpuscular Volume 80.5 FL (87-102); Mean Platelet Volume 9.5 FL (9.6-12.0); Monocytes % 11.9 % (1.7-12.7); Neutrophils % 59.6 % (38.7-73.9); Platelet Count 216 T/CUMM (130-400); Red Blood Count 4.52 MC/CUMM (3.8-5.5); Red Cell Distribution Width 14.6 % (9.3-17.3); White Blood Count 7.3 T/CUMM (4-12)
[2018-09-16 07:45] LABS: Hemoglobin 11.3 GM/DL (14.0-18.0)
[2018-09-16 08:02] LABS: Calcium 8.6 MG/DL (8.5-10.1); Osmolality,Calculated 272.8 MOS/KG (273-304)
[2018-09-16] MEDS ORDERED: FUROSEMIDE 40 MG/4 ML VIAL IV ONE (08:30)
[2018-09-16] MEDS: cefTRIAXone 1,000 MG in SYRINGE 1 EACH IV SCH (08:47)
[2018-09-16] MEDS: PANTOPRAZOLE 40 MG TABLET PO SCH (08:49)
[2018-09-16] MEDS: POLYETHYLENE GLYCOL POWDER 17 GM PACK PO SCH (08:49)
[2018-09-16] MEDS: BENZONATATE 100 MG CAPSULE PO SCH ×3 (08:49→20:30)
[2018-09-16] MEDS: DOCUSATE SODIUM 100 MG CAPSULE PO SCH (08:50)
[2018-09-16] MEDS: ESCITALOPRAM 10 MG TABLET PO SCH (08:50)
[2018-09-16] MEDS: AZITHROMYCIN 250 MG TABLET PO SCH (08:50)
[2018-09-16] MEDS: LUBIPROSTONE 8 MCG CAPSULE PO SCH ×2 (08:50→20:30)
[2018-09-16] MEDS: TAMSULOSIN 0.4 MG CAPSULE PO SCH ×2 (08:50→18:20)
[2018-09-16] MEDS: NEBIVOLOL 10 MG TABLET PO SCH ×2 (08:50→20:30)
[2018-09-16] MEDS: CHLORTHALIDONE 25 MG TABLET PO SCH (08:50)
[2018-09-16] MEDS: ALLOPURINOL 100 MG TABLET PO SCH (08:51)
[2018-09-16] MEDS: APIXABAN 2.5 MG TABLET PO SCH ×2 (08:51→20:30)
[2018-09-16] MEDS: GABAPENTIN 300 MG CAPSULE PO SCH ×3 (08:51→20:30)
[2018-09-16] MEDS ORDERED: MAGNESIUM HYDROXIDE SUSP 30 ML UDCUP PO SCH (09:00)
[2018-09-16] MEDS ORDERED: METHYLNALTREXONE 12 MG/0.6 ML VIAL SUBCUT ONE (10:36)
[2018-09-16] MEDS: DOCUSATE/SENNA 50-8.6 MG TABLET PO SCH ×2 (14:15→20:30)
[2018-09-16] MEDS: MONTELUKAST 10 MG TABLET PO SCH (20:30)
[2018-09-16] MEDS: DUTASTERIDE 0.5 MG CAPSULE PO SCH (20:30)
[2018-09-16] MEDS: clonazePAM 0.5 MG TABLET PO PRN (23:17)
[2018-09-17] MEDS: ALBUTEROL/IPRATROPIUM 3 ML NEB RESP TX SCH ×3 (00:10→12:09)
[2018-09-17] MEDS: LEVOTHYROXINE 50 MCG TABLET PO SCH (05:54)
[2018-09-17] MEDS ORDERED: MAGNESIUM HYDROXIDE SUSP 30 ML UDCUP PO PRN (07:23)
[2018-09-17 07:57] LABS: Basophils % 0.7 % (0.0-0.8); Eosinophils # 0.5 10*3/uL (0.0-0.87); Hematocrit 35.3 VOL% (42.0-52.0); Hemoglobin 10.9 GM/DL (14.0-18.0); Immature Granulocytes % 0.7 %; Immature Granulocytes Absolute 0.04 #; Lymphocytes # 1.1 10*3/uL (1.4-4.0); Lymphocytes % 19.8 % (21.2-54.2); Mean Corpuscular HGB Conc 30.9 GM/DL (32-36); Mean Corpuscular Volume 80.8 FL (87-102); Mean Platelet Volume 9.4 FL (9.6-12.0); Monocytes % 11.5 % (1.7-12.7); Neutrophils % 58.3 % (38.7-73.9); Platelet Count 203 T/CUMM (130-400); Red Blood Count 4.37 MC/CUMM (3.8-5.5); Red Cell Distribution Width 14.5 % (9.3-17.3); White Blood Count 5.6 T/CUMM (4-12)
[2018-09-17 08:15] LABS: Calcium 9.1 MG/DL (8.5-10.1); Osmolality,Calculated 273.8 MOS/KG (273-304)
[2018-09-17] MEDS: cefTRIAXone 1,000 MG in SYRINGE 1 EACH IV SCH (08:42)
[2018-09-17] MEDS: LUBIPROSTONE 8 MCG CAPSULE PO SCH (08:43)
[2018-09-17] MEDS: NEBIVOLOL 10 MG TABLET PO SCH (08:43)
[2018-09-17] MEDS: POLYETHYLENE GLYCOL POWDER 17 GM PACK PO SCH (08:43)
[2018-09-17] MEDS: PANTOPRAZOLE 40 MG TABLET PO SCH (08:43)
[2018-09-17] MEDS: BENZONATATE 100 MG CAPSULE PO SCH (08:43)
[2018-09-17] MEDS: ALLOPURINOL 100 MG TABLET PO SCH (08:43)
[2018-09-17] MEDS: ESCITALOPRAM 10 MG TABLET PO SCH (08:44)
[2018-09-17] MEDS: DOCUSATE/SENNA 50-8.6 MG TABLET PO SCH (08:44)
[2018-09-17] MEDS: TAMSULOSIN 0.4 MG CAPSULE PO SCH (08:44)
[2018-09-17] MEDS: APIXABAN 2.5 MG TABLET PO SCH (08:44)
[2018-09-17] MEDS: CHLORTHALIDONE 25 MG TABLET PO SCH (08:44)
[2018-09-17] MEDS: GABAPENTIN 300 MG CAPSULE PO SCH (08:45)
[2018-09-17] MEDS: fentaNYL 12 MCG/HR PATCH TRANSDERM SCH (08:54)
[2018-09-17] MEDS ORDERED: POTASSIUM CHLORIDE 20 MEQ TABLET PO ONE (10:14)
[2018-09-17 11:51] VITALS: BP 153/71
== END 2018-09-17 12:00 | DRG 194 ==
LOC: EDUNIT# → N.ED 15:30 → SUATTDRO 19:10 → N.EDINP 19:10 → N.5E 19:49
PROVIDERS: ADMIT Psychiatry & Neurology Psychiatry; ATTEND Internal Medicine

== ENCOUNTER 2019-02-06 14:18 | Observation (INO) ==
[2019-02-06 15:20] LABS: Basophils % 0.6 % (0.0-0.8); Eosinophils # 0.5 10*3/uL (0.0-0.87); Eosinophils % 7.2 % (0.00-10.9); Hematocrit 34.4 VOL% (42.0-52.0); Hemoglobin 10.9 GM/DL (14.0-18.0); Immature Granulocytes % 0.3 %; Immature Granulocytes Absolute 0.02 #; Lymphocytes # 1.6 10*3/uL (1.4-4.0); Lymphocytes % 22.4 % (21.2-54.2); Mean Corpuscular HGB Conc 31.7 GM/DL (32-36); Mean Corpuscular Volume 88.4 FL (87-102); Monocytes % 8.3 % (1.7-12.7); Neutrophils % 61.2 % (38.7-73.9); Platelet Count 142 T/CUMM (130-400); Red Blood Count 3.89 MC/CUMM (3.8-5.5); Red Cell Distribution Width 14.8 % (9.3-17.3); White Blood Count 7.2 T/CUMM (4-12)
[2019-02-06 15:41] LABS: Alanine Aminotransferase 26 U/L (16-61); Albumin 2.7 G/DL (3.4-5.0); Alkaline Phosphatase 87 U/L (45-117); Aspartate Amino Transferase 19 U/L (0-37); Bilirubin,Total < 0.39 MG/DL (0.2-1.0); Blood Urea Nitrogen 18 MG/DL (7-18); Calcium 8.3 MG/DL (8.5-10.1); Estimated Glom Filtration Rate 67 ML/MIN; Glucose 85 MG/DL (74-106); Osmolality,Calculated 286.8 MOS/KG (273-304)
[2019-02-06 16:15] LABS: Apearance,Urine Slightly Hazy (Clear); Bilirubin,Urine Negative (Negative); Blood, Urine Small mg/dL (Negative); Glucose,Urine (UA) Negative (Negative); Ketones,Urine Negative (Negative); Mucus,Urine Occasional /LPF (Occasional); Nitrite,Urine Negative (Negative); Protein,Urine Negative; RBC,Urine 34 /HPF (0-4); Urine Color Yellow (Yellow); Urine Specific Gravity 1.006 (1.001-1.035); Urine Urobilinogen < 2.0 EU/DL (0.2-1.0); WBC,Urine 29 /HPF (0-6)
[2019-02-06 16:23] LABS: Barbiturates Screen,Urine Negative (Negative); Benzodiazepines Screen,Urine Negative (Negative); Cannabinoid Screen,Urine Negative (Negative); Opiate Screen,Urine Positive (Negative); Phencyclidine Screen,Urine Negative (Negative)
[2019-02-06] MEDS ORDERED: ACETAMINOPHEN 325 MG TABLET PO PRN ×2 (17:22→18:48)
[2019-02-06] MEDS ORDERED: DOCUSATE SODIUM 100 MG CAPSULE PO PRN (17:22)
[2019-02-06] MEDS ORDERED: LACTULOSE 20 GM/30 ML UDCUP PO PRN (17:22)
[2019-02-06] MEDS ORDERED: ONDANSETRON 4 MG/2 ML VIAL IV PRN (17:22)
[2019-02-06] MEDS ORDERED: ENOXAPARIN 40 MG/0.4 ML SYRINGE SUBCUT SCH (17:30)
[2019-02-06] MEDS ORDERED: SODIUM CHLORIDE 0.9% 1,000 ML IV SCH (17:30)
[2019-02-06] MEDS: cefTRIAXone 1,000 MG in SYRINGE 1 EACH IV SCH (18:15)
[2019-02-06] MEDS ORDERED: ALBUTEROL 2.5 MG/3 ML NEB RESP TX PRN ×2 (18:48)
[2019-02-06] MEDS: ALBUTEROL/IPRATROPIUM 3 ML NEB RESP TX SCH (20:33)
[2019-02-06] MEDS: CILOSTAZOL 100 MG TABLET PO SCH (20:40)
[2019-02-06] MEDS: GABAPENTIN 300 MG CAPSULE PO SCH (20:40)
[2019-02-06] MEDS: LUBIPROSTONE 8 MCG CAPSULE PO SCH (20:40)
[2019-02-06] MEDS: APIXABAN 2.5 MG TABLET PO SCH (20:40)
[2019-02-06] MEDS ORDERED: DUTASTERIDE 0.5 MG CAPSULE PO SCH (21:00)
[2019-02-06] MEDS ORDERED: MONTELUKAST 10 MG TABLET PO SCH (21:00)
[2019-02-07] MEDS: ALBUTEROL/IPRATROPIUM 3 ML NEB RESP TX SCH ×3 (00:32→12:59)
[2019-02-07 05:29] LABS: Basophils % 0.7 % (0.0-0.8); Eosinophils # 0.3 10*3/uL (0.0-0.87); Eosinophils % 5.4 % (0.00-10.9); Hematocrit 34.7 VOL% (42.0-52.0); Hemoglobin 10.9 GM/DL (14.0-18.0); Immature Granulocytes % 0.2 %; Immature Granulocytes Absolute 0.01 #; Lymphocytes % 17.3 % (21.2-54.2); Mean Corpuscular HGB Conc 31.4 GM/DL (32-36); Mean Corpuscular Volume 87.2 FL (87-102); Mean Platelet Volume 9.3 FL (9.6-12.0); Monocytes % 8.1 % (1.7-12.7); Neutrophils % 68.3 % (38.7-73.9); Platelet Count 131 T/CUMM (130-400); Red Blood Count 3.98 MC/CUMM (3.8-5.5); Red Cell Distribution Width 14.7 % (9.3-17.3)
[2019-02-07] MEDS ORDERED: LEVOTHYROXINE 75 MCG TABLET PO SCH (06:00)
[2019-02-07 06:02] LABS: Albumin 2.7 G/DL (3.4-5.0); Bilirubin,Total 0.6 MG/DL (0.2-1.0); Calcium 8.5 MG/DL (8.5-10.1); Osmolality,Calculated 281.3 MOS/KG (273-304)
[2019-02-07] MEDS ORDERED: ESCITALOPRAM 10 MG TABLET PO SCH (09:00)
[2019-02-07] MEDS ORDERED: ALLOPURINOL 100 MG TABLET PO SCH (09:00)
[2019-02-07] MEDS ORDERED: PANTOPRAZOLE 40 MG TABLET PO SCH ×2 (09:00)
[2019-02-07] MEDS ORDERED: NEBIVOLOL 10 MG TABLET PO SCH (09:00)
[2019-02-07] MEDS ORDERED: POLYETHYLENE GLYCOL POWDER 17 GM PACK PO SCH (09:00)
[2019-02-07] MEDS ORDERED: LACTOBACILLUS RHAMNOSUS GG CAPSULE PO SCH (09:00)
[2019-02-07] MEDS ORDERED: CHLORTHALIDONE 25 MG TABLET PO SCH (09:00)
[2019-02-07] MEDS: LUBIPROSTONE 8 MCG CAPSULE PO SCH (09:50)
[2019-02-07] MEDS: TAMSULOSIN 0.4 MG CAPSULE PO SCH ×2 (09:50→18:45)
[2019-02-07] MEDS: CILOSTAZOL 100 MG TABLET PO SCH (09:50)
[2019-02-07] MEDS: GABAPENTIN 300 MG CAPSULE PO SCH ×2 (09:51→15:02)
[2019-02-07] MEDS: APIXABAN 2.5 MG TABLET PO SCH (09:58)
[2019-02-07] MEDS: cefTRIAXone 1,000 MG in SYRINGE 1 EACH IV SCH (18:45)
[2019-02-07 20:07] VITALS: BP 112/87
[2019-02-08] MEDS: ALBUTEROL/IPRATROPIUM 3 ML NEB RESP TX SCH ×2 (00:26→02:07)
== END 2019-02-07 20:25 ==
LOC: N.ED 14:18 → INTOOBSV 17:22 → N.EDINP 17:22 → N.4E 17:52
PROVIDERS: ADMIT Internal Medicine; ATTEND Internal Medicine